=== PATIENT | female | born 1970 | race Caucasian/White ===

== ENCOUNTER 2017-02-03 15:00 | Emergency (ER) | payer MEDICAID ==
[~2017-02-03 15:00] MED LIST: ABILIFY2 MG PO; ADVAIR 2501 DISK W/D IH; ALBUTEROL; ALPRAZOLAM1 M2 PO; AMBIEN10 MG PO; ANTIBIOTIC; APIDRA SC; APIDRA SOL100 UNIT/1 SQ; APIDRA100 U/M SQ; APIDRA100 UNIT/1 SQ; ASPIR 8181 MG PO; ASPIRIN EC81 MG PO; ATIVAN; ATIVAN0.5 MG PO; ATIVAN1 M2 PO; ATIVAN1 MG PO; AVINZA30 MG PO; AXERT PO; AXERT12.5 MG PO; BACTROBAN15 GM TP; BACTROBAN22 GM TP; BELSOMRA15 MG PO; BELSOMRA20 MG PO; BENTYL20 M1 PO; BENTYL20 MG PO; BETAMETHASONE V15 G3 TOP; CAFERGOT TABLE1 EACH PO; CATAPRES0.1 MG PO; CELEXA20 M2 PO; CELEXA20 MG; CELEXA40 MG PO; CERTIRIZINE HCL PO; CERTIRIZINE PO; CETIRIZINE PO; CIPROFLOXACIN500 MG PO; COL-RITE100 M1 PO; COL-RITE100 M2 PO; COLACE100 MG; COLACE100 MG PO; COZAAR25 M1 PO; CYMBALTA60 MG PO; DOCUSATE SODIU100 M2 PO; DOCUSATE SODIUM50 MG PO; DOXEPIN HCL25 M1 PO; DOXEPIN HCL25 MG PO; DOXEPIN HCL50 M1 PO; DOXYCYCLINE HY100 MG PO; ELAVIL75 MG PO; ERYTHROMYCIN OPH OP; FLEXERIL; FLOVENT DISKU100 MC1 INH; FLOVENT DISKU100 MCG IH; FLOVENT HFA1 PUF2 INH; FOLGARD TABLET1 TAB PO; GABAPENTIN300 MG PO; GABAPENTIN600 M1 PO; GABAPENTIN600 M2 PO; GABAPENTIN600 MG PO; GLUCOPHAGE PO; GLUCOPHAGE500 M3 PO; GLUCOPHAGE500 MG PO; GRALISE600 M1 PO; GUANFACINE HCL1 M1 PO; HYDROCODON-ACE1 EAC1 PO; HYDROXYZINE HCL25 MG PO; HYDROXYZINE HCL50 M1 PO; HYDROXYZINE HCL50 MG PO; HYDROXYZINE PAM50 MG PO; INSULIN; INVOKANA300 MG PO; JANUVIA100 M1 PO; KEPPRA500 MG; KEPPRA750 M2 PO; KEPPRA750 MG PO; LAMICTAL (ORAN1 EACH PO; LAMICTAL25 M PO; LANTUS SOL100 UNIT/1 SC; LANTUS SOLOSTAR3 ML SQ; LANTUS100 U/ML SC; LANTUS100 UNITS/; LEVETIRACETAM750 MG PO; LEXAPRO20 M2 PO; LIDOCAINE TOP; LIDODERM1 EACH TD; LIPITOR40 MG PO; LIPITOR80 MG PO; LISINOPRIL2.5 MG PO; LISINOPRIL5 M1 PO; LORAZEPAM; LOSARTAN POTASS25 M1 PO; LUNESTA3 M1 PO; LUNESTA3 MG PO; MACROBID 100 M100 M1 PO; MEDROL4 MG/DOSE- PO; METFORMIN HCL500 MG PO; MIRTAZAPINE45 M1 PO; MIRTAZAPINE45 M2 PO; MOBIC15 M2 PO; MS CONTIN30 MG PO; MSIR30 MG PO; NAMENDA10 MG; NEURONTIN600 M1 PO; NORCO 5-325 TA1 EACH PO; NORCO 5/325 TAB1 TAB PO; NORCO 5/3251 TAB PO; NORCO 7.5/325 T1 TAB PO; NORPRAMIN PO; NUCYNTA50 MG PO; OMEPRAZOLE20 MG PO; PHENAZOPYRIDIN200 MG PO; PHENERGAN PO; PROVENTIL HFA6.7 G1 INH; PROVENTIL5 MG/ML IH; REMERON15 MG PO; REMERON30 M1 PO; RITALIN10 M1 PO; SENNA8.6 M PO; SENNA8.6 M1 PO; SEROQUEL25 MG PO; SINEQUAN25 MG PO; SOMA350 M1 PO; STRATTERA PO; STRATTERA100 MG PO; STRATTERA40 MG PO; STRATTERA60 MG; STRATTERA60 MG PO; TESSALON PERLE100 MG; TOPAMAX100 M1 PO; TOPAMAX100 M2 PO; TOPAMAX100 MG PO; TOPAMAX200 MG; TOPIRAMATE PO; TOPIRAMATE100 MG PO; TRAZODONE100 MG; TRAZODONE100 MG PO; ULTRAM50 M1 PO; VIMPAT100 M1 PO; VIMPAT100 MG PO; VIMPAT200 MG PO; VIMPAT50 MG/TAB PO; XANAX1 M1 PO; ZANAFLEX4 M2 PO; ZANAFLEX4 M3 PO; ZOFRAN4 M1 PO; ZOFRAN4 M2 PO; ZOFRAN4 MG PO; ZYRTEC10 M1 PO; ZYRTEC10 M3 PO; ZYRTEC10 M4 PO; ZYRTEC10 M7 PO; [UNRECOGNIZED DRUG - OTHER] PO; [UNRECOGNIZED DRUG - OTHER] PO; [UNRECOGNIZED DRUG - OTHER] PO
[2017-02-03 16:17] LABS: BASO % 0.5 % (0-2); EOS % 5.8 % (0-7); EOSINOPHIL ABSOLUTE COUNT 0.5 tho/cmm (0.0-0.7); HCT-HEMATOCRIT 48.5 % (34.0-49.0); HGB-HEMOGLOBIN 16.3 gm/dl (12.0-15.5); IMMATURE GRANULOCYTES ABSOLUTE 0.02 tho/cmm (0-0.03); IMMATURE GRANULOCYTES PERCENT 0.3 % (0-0.3); LYMPH % 29.9 % (20-45); LYMPH ABSOLUTE COUNT 2.4 tho/cmm (0.8-4.5); MCHC MEAN CORPUSCULAR HGB CONC 33.6 % (32.0-36.0); MCV (MEAN CELL VOLUME) 83.2 fl (82.0-96.0); MEAN PLATELET VOLUME 9.5 cmc (9.4-12.4); MONO % 6.2 % (0-12); MONOCYTE ABSOLUTE COUNT 0.5 tho/cmm (0.0-1.2); NEUTROPHIL ABSOLUTE COUNT 4.6 tho/cmm (1.6-8.0); NEUTROPHIL-AUTOMATED 4.6 tho/cmm (1.6-8.0); NEUTROPHILS % 57.3 % (40-80); PLATELET COUNT 269 tho/cmm (150-450); RED BLOOD COUNT 5.83 mil/cmm (4.00-5.20); RED CELL DISTRIBUTION WIDTH 13.1 % (12.4-16.4); WHITE BLOOD COUNT 7.9 tho/cmm (4.0-10.0)
[2017-02-03 16:30] LABS: ANION GAP 11 mmol/L (0-20); BLOOD UREA NITROGEN 15 mg/dl (6-24); CALCIUM 10.1 mg/dl (8.5-10.5); CARBON DIOXIDE-VENOUS 29 mmol/L (22-32); CHLORIDE 107 mmol/l (96-110); CREATININE 0.88 mg/dl (0.50-1.10); GLUCOSE 84 mg/dL (70-110); POTASSIUM 3.8 mmol/L (3.7-5.1); SODIUM 143 mmol/L (135-145); eGFR VALUE FOR BLACK >90 mL/Min
[2017-02-03] MEDS ORDERED: PERCOCET 5-3251 EACH PO (18:03)
[2017-03-23] MEDS ORDERED: TRIAMCINOLONE A15 G2 TP (16:48)
== END 2017-02-03 18:15 ==
LOC: EDMED 15:00
PROVIDERS: Emergency Medicine
DX: G40.909 Epilepsy, unspecified, not intractable, without status epilepticus (principal); S42.252A Displaced fracture of greater tuberosity of left humerus, initial encounter for closed fracture; E11.9 Type 2 diabetes mellitus without complications; G43.909 Migraine, unspecified, not intractable, without status migrainosus; Z79.4 Long term (current) use of insulin; Z79.899 Other long term (current) drug therapy; X58.XXXA Exposure to other specified factors, initial encounter

== ENCOUNTER 2017-02-08 22:13 | Emergency (ER) | payer MEDICAID ==
[~2017-02-08 22:13] MED LIST changes: +PERCOCET 5-3251 EACH PO
[2017-02-09] MEDS ORDERED: VIMPAT200 M1 PO (00:02)
[2017-03-23] MEDS ORDERED: TRIAMCINOLONE A15 G2 TP (16:48)
== END 2017-02-09 00:42 ==
LOC: EDMED 22:13
DX: G40.909 Epilepsy, unspecified, not intractable, without status epilepticus (principal); E11.9 Type 2 diabetes mellitus without complications; F90.9 Attention-deficit hyperactivity disorder, unspecified type; F43.10 Post-traumatic stress disorder, unspecified; F32.9 Major depressive disorder, single episode, unspecified; F41.9 Anxiety disorder, unspecified; Z79.899 Other long term (current) drug therapy; Z79.4 Long term (current) use of insulin